=== PATIENT | male | born 1960 | race Caucasian/White ===

== ENCOUNTER 2019-10-09 10:00 | Inpatient (IN) | payer OTHER ==
[~2019-10-09] VITALS: Ht 188 cm; Wt 133.4 kg
[2019-10-09 10:45] VITALS: BP 115/78
[2019-10-09] MEDS ORDERED: PLEASE ENTER ALLERGIES MC SCH (11:00)
[2019-10-09] MEDS ORDERED: PLEASE ENTER HEIGHT AND WEIGHT MC SCH (11:00)
[2019-10-09] MEDS ORDERED: GLIM4TAB4 PO (11:01)
[2019-10-09] MEDS ORDERED: METF-649 PO (11:01)
[2019-10-09] MEDS ORDERED: VIT1CAPS42 PO (11:01)
[2019-10-09] MEDS ORDERED: APIX5TAB PO (11:01)
[2019-10-09] MEDS ORDERED: DILT240C9 PO (11:01)
[2019-10-09] MEDS ORDERED: METO-290 PO (11:01)
[2019-10-09] MEDS ORDERED: ENAL10TA PO (11:01)
[2019-10-09] MEDS ORDERED: INSU200I4 SQ (11:01)
[2019-10-09] MEDS ORDERED: LIPA1CAP18 PO (11:01)
[2019-10-09] MEDS ORDERED: EMPA25TA PO (11:01)
[2019-10-09] MEDS ORDERED: INSU100I18 SQ (11:16)
[2019-10-09 11:37] LABS: BASOPHILS % (AUTO) 1 % (0-1); EOSINOPHILS # (AUTO) 0.36 x10^3/uL (0-0.4); EOSINOPHILS % (AUTO) 4 % (1-7); LYMPHOCYTES # (AUTO) 2.03 x10^3/uL (1-3.4); LYMPHOCYTES % (AUTO) 22 % (22-44); MD NO; MEAN CORPUSCULAR HEMOGLOBIN 30.6 pg (27.5-34.5); MEAN CORPUSCULAR HGB CONC 32.3 g/dL (33.2-36.2); MEAN CORPUSCULAR VOLUME 94.9 fL (81-97); MEAN PLATELET VOLUME 8.8 fL (7.4-10.4); MONOCYTES # (AUTO) 1.04 x10^3/uL (0.2-0.8); MONOCYTES % (AUTO) 11 % (2-9); NEUTROPHILS # (AUTO) 5.68 x10^3/uL (1.8-6.8); NEUTROPHILS % (AUTO) 62 % (42-75); PLATELET COUNT 290 x10^3/uL (130-400); RED BLOOD COUNT 5.57 x10^6/uL (4.38-5.82); RED CELL DISTRIBUTION WIDTH 13.9 % (9.4-14.8)
[2019-10-09 11:48] LABS: ANION GAP 5 mmol/L (5-15); CALCIUM 8.4 mg/dL (8.5-10.1); CHLORIDE 116 mmol/L (98-107)
[2019-10-09 11:53] LABS: ALANINE AMINOTRANSFERASE 51 U/L (12-78); ALBUMIN 3.7 g/dL (3.4-5.0); ALKALINE PHOSPHATASE 70 U/L (45-117); BILIRUBIN,TOTAL 1.1 mg/dL (0.2-1.0); CHOL/HDL RATIO 2.9; CHOLESTEROL, TOTAL 125 mg/dL (140-239); CREATININE 0.75 mg/dL (0.7-1.3); HDL CHOL % 34 % (26-37); HDL CHOLESTEROL (DIRECT) 43 mg/dL (40-60); LDL CHOLESTEROL,CALCULATED 62 mg/dL (54-169); LDL/HDL RATIO 1.4 (0.5-3.0); TOTAL PROTEIN 6.3 g/dL (6.4-8.2); TRIGLYCERIDES 102 mg/dL (50-200); TROPONIN I < 0.015 ng/mL (0.000-0.045); VLDL CHOLESTEROL 20 mg/dL (0-25)
[2019-10-09 11:59] LABS: FREE T4 (FREE THYROXINE) 1.14 ng/dL (0.76-1.46)
[2019-10-09] MEDS: SOTALOL 120MG TABLET PO SCH (12:10)
[2019-10-09 15:10] VITALS: BP 112/72
[2019-10-09 16:16] LABS: TROPONIN I < 0.015 ng/mL (0.000-0.045)
[2019-10-09] MEDS: NOVOLOG SQ SCH ×2 (17:14→20:08)
[2019-10-09] MEDS: metFORMIN 500 MG TABLET PO SCH (17:17)
[2019-10-09 18:56] VITALS: BP 111/75
[2019-10-09] MEDS: INSULIN DEGLUDEC SQ SCH (21:00)
[2019-10-09] MEDS ORDERED: DILTIAZEM CD 180 MG CAP.ER.24H PO SCH (21:00)
[2019-10-09] MEDS: SODIUM CHLORIDE FLUSH 3ML SYRINGE IVF SCH (21:00)
[2019-10-09] MEDS: GLIMEPIRIDE 4 MG TABLET PO SCH (21:28)
[2019-10-09] MEDS: APIXABAN 5 MG TABLET PO SCH (21:28)
[2019-10-09 22:50] LABS: TROPONIN I < 0.015 ng/mL (0.000-0.045)
[2019-10-09 23:57] VITALS: BP 100/67
[2019-10-10] VITALS: BP 100/67
[2019-10-10] MEDS: SOTALOL 120MG TABLET PO SCH ×3 (00:21→20:16)
[2019-10-10] MEDS: METOPROLOL SUCCINATE 100 MG TAB.ER.24H PO SCH ×2 (05:54→10:12)
[2019-10-10 06:56] VITALS: BP 125/89
[2019-10-10 08:14] VITALS: BP 119/78
[2019-10-10] MEDS: NOVOLOG SQ SCH ×4 (08:30→20:04)
[2019-10-10] MEDS ORDERED: DILTIAZEM CD 180 MG CAP.ER.24H PO SCH (09:00)
[2019-10-10] MEDS: APIXABAN 5 MG TABLET PO SCH ×2 (09:56→20:15)
[2019-10-10] MEDS: LINAGLIPTIN 5 MG TAB PO SCH (09:56)
[2019-10-10] MEDS: GLIMEPIRIDE 4 MG TABLET PO SCH ×2 (09:57→20:15)
[2019-10-10] MEDS: SODIUM CHLORIDE FLUSH 3ML SYRINGE IVF SCH ×2 (09:57→21:00)
[2019-10-10] MEDS: metFORMIN 500 MG TABLET PO SCH ×2 (09:57→17:45)
[2019-10-10] MEDS: ENALAPRIL 10 MG TABLET PO SCH (10:12)
[2019-10-10 14:21] VITALS: BP 103/64
[2019-10-10 20:12] VITALS: BP 114/85
[2019-10-10] MEDS: INSULIN DEGLUDEC SQ SCH (20:18)
[2019-10-11 01:24] VITALS: BP 116/71
[2019-10-11] MEDS: METOPROLOL SUCCINATE 100 MG TAB.ER.24H PO SCH (06:23)
[2019-10-11] MEDS: NOVOLOG SQ SCH ×4 (08:08→20:37)
[2019-10-11] MEDS ORDERED: ENALAPRIL 5MG TABLET ONE (08:35)
[2019-10-11 08:58] VITALS: BP 101/66
[2019-10-11] MEDS: APIXABAN 5 MG TABLET PO SCH ×2 (09:06→20:35)
[2019-10-11] MEDS: ENALAPRIL 10 MG TABLET PO SCH (09:06)
[2019-10-11] MEDS: SOTALOL 120MG TABLET PO SCH ×2 (09:06→20:35)
[2019-10-11] MEDS: GLIMEPIRIDE 4 MG TABLET PO SCH ×2 (09:06→20:35)
[2019-10-11] MEDS: LINAGLIPTIN 5 MG TAB PO SCH (09:06)
[2019-10-11] MEDS: metFORMIN 500 MG TABLET PO SCH ×2 (09:06→17:40)
[2019-10-11] MEDS: SODIUM CHLORIDE FLUSH 3ML SYRINGE IVF SCH ×2 (09:06→20:39)
[2019-10-11 13:44] VITALS: BP 96/59
[2019-10-11 15:00] VITALS: BP 102/78
[2019-10-11 19:41] VITALS: BP 109/66
[2019-10-11] MEDS: INSULIN DEGLUDEC SQ SCH (21:00)
[2019-10-12 01:17] VITALS: BP 128/86
[2019-10-12] MEDS: METOPROLOL SUCCINATE 100 MG TAB.ER.24H PO SCH (06:13)
[2019-10-12 07:19] VITALS: BP 115/73
[2019-10-12] MEDS: NOVOLOG SQ SCH (08:52)
[2019-10-12] MEDS: SODIUM CHLORIDE FLUSH 3ML SYRINGE IVF SCH (08:53)
[2019-10-12] MEDS: GLIMEPIRIDE 4 MG TABLET PO SCH (08:53)
[2019-10-12] MEDS: SOTALOL 120MG TABLET PO SCH (08:53)
[2019-10-12] MEDS: metFORMIN 500 MG TABLET PO SCH (08:53)
[2019-10-12] MEDS: ENALAPRIL 10 MG TABLET PO SCH (08:54)
[2019-10-12] MEDS: LINAGLIPTIN 5 MG TAB PO SCH (08:54)
[2019-10-12] MEDS: APIXABAN 5 MG TABLET PO SCH (08:54)
[2019-10-12] MEDS ORDERED: SOTA120T14 PO (10:57)
== END 2019-10-12 11:47 | disposition home or self-care (01) | DRG 309 ==
LOC: 5SO 10:19 → DCLOUNGE 10-12 11:47
PROVIDERS: ADMIT Internal Medicine Cardiovascular Disease; ATTEND Internal Medicine Cardiovascular Disease
DX: I48.0 Paroxysmal atrial fibrillation (principal); D68.59 Other primary thrombophilia; E11.9 Type 2 diabetes mellitus without complications; E78.5 Hyperlipidemia, unspecified; I10 Essential (primary) hypertension; Z87.891 Personal history of nicotine dependence
CPT/HCPCS: 36415; 71046; 80053; 80061; 82962; 84439; 84443; 84484; 85025; 93005; G0378

== ENCOUNTER 2020-05-16 10:43 | Outpatient (CLI) | payer OTHER ==
[~2020-05-16 10:43] MED LIST: APIX5TAB PO; DILT240C47 PO; EMPA25TA PO; ENAL10TA PO; GLIM4TAB8 PO; INSU100I18 SQ; INSU200I4 SQ; LIPA1CAP18 PO; METF-649 PO; METO-290 PO; SOTA120T14 PO; VIT1CAPS42 PO
== END 2020-05-16 23:59 | disposition home or self-care (01) ==
LOC: CVU 10:43
PROVIDERS: ATTEND Internal Medicine Cardiovascular Disease
DX: I48.0 Paroxysmal atrial fibrillation (principal)
CPT/HCPCS: C8929; Q9957

== ENCOUNTER → 2020-06-03 | Outpatient (CLI) | payer OTHER | END | disposition home or self-care (01) | LOC: RAD 07:09 | PROVIDERS: ATTEND Internal Medicine Gastroenterology | DX: K57.90 Diverticulosis of intestine, part unspecified, without perforation or abscess without bleeding (principal); R10.9 Unspecified abdominal pain | CPT/HCPCS: 74270 ==

== ENCOUNTER 2020-06-28 12:34 | Outpatient (CLI) | payer OTHER ==
[~2020-06-28 12:34] MED LIST changes: -ENAL10TA PO; +ENAL10TA9 PO
[2020-06-28] MEDS ORDERED: OMNIPAQUE 350 MG/ML, 150 ML BOTTLE ONE (15:24)
== END 2020-06-28 23:59 | disposition home or self-care (01) ==
LOC: CFH 12:34
PROVIDERS: ATTEND Internal Medicine Cardiovascular Disease
DX: I25.10 Atherosclerotic heart disease of native coronary artery without angina pectoris (principal); M47.814 Spondylosis without myelopathy or radiculopathy, thoracic region; I48.0 Paroxysmal atrial fibrillation; I10 Essential (primary) hypertension; E11.9 Type 2 diabetes mellitus without complications; E78.2 Mixed hyperlipidemia; Z79.01 Long term (current) use of anticoagulants
CPT/HCPCS: 71046; 75572; 82565; Q9967

== ENCOUNTER 2020-07-04 06:05 | Observation (INO) | payer OTHER ==
[~2020-07-04] VITALS: Ht 188 cm; Wt 136.4 kg
[~2020-07-04 06:05] MED LIST changes: +ENAL10TA PO; -ENAL10TA9 PO
[2020-07-04] MEDS ORDERED: SODIUM CHLORIDE 0.9% 1,000 ML IV SCH (06:28)
[2020-07-04] MEDS ORDERED: SODIUM CHLORIDE 0.9% 1,000 ML IV ONE (06:30)
[2020-07-04 06:45] VITALS: BP 138/89
[2020-07-04] MEDS ORDERED: INSU100I18 SC (06:57)
[2020-07-04] MEDS ORDERED: INSU100C5 SQ-INSULIN (06:57)
[2020-07-04] MEDS ORDERED: SOTA160T PO (06:57)
[2020-07-04 07:07] LABS: BASOPHILS # (AUTO) 0.05 x10^3/uL (0-0.1); BASOPHILS % (AUTO) 1 % (0-1); EOSINOPHILS # (AUTO) 0.55 x10^3/uL (0-0.4); EOSINOPHILS % (AUTO) 5 % (1-7); LYMPHOCYTES # (AUTO) 1.88 x10^3/uL (1-3.4); LYMPHOCYTES % (AUTO) 18 % (22-44); MD NO; MEAN CORPUSCULAR HEMOGLOBIN 29.9 pg (27.5-34.5); MEAN CORPUSCULAR HGB CONC 32.6 g/dL (33.2-36.2); MEAN CORPUSCULAR VOLUME 91.8 fL (81-97); MONOCYTES # (AUTO) 0.94 x10^3/uL (0.2-0.8); MONOCYTES % (AUTO) 9 % (2-9); NEUTROPHILS % (AUTO) 67 % (42-75); PLATELET COUNT 279 x10^3/uL (130-400); RED CELL DISTRIBUTION WIDTH 14.1 % (9.4-14.8)
[2020-07-04] MEDS ORDERED: LIDOCAINE 2%, 20ML ONE (07:33)
[2020-07-04] MEDS ORDERED: MIDAZOLAM 1 MG/ML, 2ML ONE (07:48)
[2020-07-04] MEDS ORDERED: FENTANYL PF 250 MCG/5ML ONE (07:48)
[2020-07-04] MEDS ORDERED: LIDOCAINE-MPF 2% ,5ML ONE (07:50)
[2020-07-04] MEDS ORDERED: SUGAMMADEX 200 MG/2 ML IVPush ONE ×2 (08:05→12:45)
[2020-07-04] MEDS ORDERED: HEPARIN 1,000 UNITS/ML, 10ML ONE ×4 (08:07→10:49)
[2020-07-04] MEDS ORDERED: ROCURONIUM 10MG/ML,5ML ONE ×2 (08:12→11:15)
[2020-07-04] MEDS ORDERED: PROPOFOL 10 MG/ML, 20ML ONE ×3 (08:12→11:38)
[2020-07-04] MEDS ORDERED: DEXAMETHASONE 4 MG/ML, 1ML ONE (08:12)
[2020-07-04] MEDS ORDERED: SUCCINYLCHOLINE 20 MG/ML, 10ML ONE (08:12)
[2020-07-04] MEDS ORDERED: ONDANSETRON 2MG/ML, 2ML ONE ×2 (08:12→13:52)
[2020-07-04] MEDS ORDERED: hydrALAzine 20 MG/ML, 1ML IV PRN (08:30)
[2020-07-04] MEDS ORDERED: ACETAMINOPHEN 325 MG TABLET PO PRN (08:30)
[2020-07-04] MEDS ORDERED: HYDROmorphone 1 MG/ML, 1ML INJ IVPush PRN (08:30)
[2020-07-04] MEDS ORDERED: MEPERIDINE/PF 25MG/0.5ML IVPush PRN (08:30)
[2020-07-04] MEDS ORDERED: LABETALOL 5MG/ML, 20ML IV PRN (08:30)
[2020-07-04] MEDS ORDERED: OXYcodone 5 MG/5 ML ORAL.SOL UDC PO PRN (08:30)
[2020-07-04] MEDS ORDERED: ONDANSETRON 2MG/ML, 2ML IVPush PRN (08:30)
[2020-07-04] MEDS ORDERED: EPHEDRINE 50 MG/ML, 1ML IVPush PRN (08:30)
[2020-07-04] MEDS ORDERED: PHENYLEPHRINE 10 MG/ML ONE ×4 (08:32→08:55)
[2020-07-04] MEDS ORDERED: PROMETHAZINE 25 MG/ML, 1ML ONE (13:03)
[2020-07-04] MEDS: PROMETHAZINE 25 MG/ML, 1ML IVPush PRN ×2 (13:05→13:20)
[2020-07-04] MEDS: FENTANYL PF 100 MCG/2ML IV PRN ×4 (13:50→15:25)
[2020-07-04] MEDS ORDERED: APIXABAN 5 MG TABLET ONE (13:50)
[2020-07-04] MEDS ORDERED: FENTANYL PF 100 MCG/2ML ONE ×2 (13:51→15:22)
[2020-07-04] MEDS ORDERED: APIXABAN 5 MG TABLET PO ONE (14:30)
[2020-07-04] MEDS ORDERED: OXYcodone 5 MG/5 ML ORAL.SOL UDC ONE (15:22)
[2020-07-04] MEDS ORDERED: TEMPLATE NON-FORMULARY MED. (Insulin Aspart (Novolog) 0 UNITS) SQ SCH (16:00)
[2020-07-04] MEDS: PANCRELIPASE 5000 CAPSULE.DR PO SCH (16:00)
[2020-07-04 16:48] VITALS: BP 156/92
[2020-07-04] MEDS ORDERED: INSULIN SLIDING SCALE MC SCH (17:00)
[2020-07-04 18:50] VITALS: BP 146/78
[2020-07-04] MEDS: TEMPLATE NON-FORMULARY MED. (Vit C/E/Zn/Coppr/Lutein/Zeaxan** (Preservision Areds 2 Softge HOMEMEDPO SCH (20:50)
[2020-07-04 20:55] VITALS: BP 136/75
[2020-07-04] MEDS: GLIMEPIRIDE 4 MG TABLET PO SCH (20:55)
[2020-07-04] MEDS: COLCHICINE 0.6 MG CAPSULE PO SCH (20:56)
[2020-07-04] MEDS: APIXABAN 5 MG TABLET PO SCH (20:56)
[2020-07-04] MEDS: SOTALOL 80MG TABLET PO SCH (20:56)
[2020-07-04] MEDS: metFORMIN 500 MG TABLET PO SCH (20:56)
[2020-07-04] MEDS ORDERED: APIXABAN 5 MG TABLET PO SCH (21:00)
[2020-07-04] MEDS ORDERED: INSULIN GLARGINE 100 UNITS/ML, PEN SQ-INSULIN SCH (21:00)
[2020-07-04] MEDS: INSULIN LISPRO 100 UNITS/ML, PEN SQ-INSULIN SCH (21:48)
[2020-07-05 01:24] VITALS: BP 99/60
[2020-07-05] MEDS: ACETAMINOPHEN 325 MG TABLET PO PRN ×2 (05:17→10:16)
[2020-07-05 06:21] LABS: CREATININE 1.07 mg/dL (0.7-1.3)
[2020-07-05 08:02] VITALS: BP 109/66
[2020-07-05] MEDS: TEMPLATE NON-FORMULARY MED. (Vit C/E/Zn/Coppr/Lutein/Zeaxan** (Preservision Areds 2 Softge HOMEMEDPO SCH (08:20)
[2020-07-05] MEDS: SOTALOL 80MG TABLET PO SCH (08:28)
[2020-07-05] MEDS: APIXABAN 5 MG TABLET PO SCH (08:28)
[2020-07-05] MEDS: GLIMEPIRIDE 4 MG TABLET PO SCH (08:28)
[2020-07-05] MEDS: COLCHICINE 0.6 MG CAPSULE PO SCH (08:28)
[2020-07-05] MEDS: INSULIN LISPRO 100 UNITS/ML, PEN SQ-INSULIN SCH ×2 (08:28→10:17)
[2020-07-05] MEDS: metFORMIN 500 MG TABLET PO SCH (08:28)
[2020-07-05] MEDS ORDERED: ACET325T26 PO (08:36)
[2020-07-05] MEDS: PANCRELIPASE 5000 CAPSULE.DR PO SCH (08:36)
[2020-07-05] MEDS ORDERED: COLC0.6C3 PO (08:36)
[2020-07-05] MEDS ORDERED: METOPROLOL SUCCINATE 100 MG TAB.ER.24H PO SCH (09:00)
[2020-07-05] MEDS ORDERED: ENALAPRIL 10 MG TABLET PO SCH (09:00)
== END 2020-07-05 11:37 | disposition home or self-care (01) ==
LOC: CACL 06:05 → ORIP 12:52 → 5SO 16:36 → DCLOUNGE 07-05 11:31
PROVIDERS: ADMIT Internal Medicine Cardiovascular Disease; ATTEND Internal Medicine Cardiovascular Disease
DX: Z03.818 Encounter for observation for suspected exposure to other biological agents ruled out (principal); I48.91 Unspecified atrial fibrillation; I48.4 Atypical atrial flutter; I10 Essential (primary) hypertension; E11.9 Type 2 diabetes mellitus without complications; Z79.899 Other long term (current) drug therapy; Z79.01 Long term (current) use of anticoagulants
CPT/HCPCS: 36415; 82565; 82962; 85025; 85347; 87635; 93308; 93312; 93321; 93325; 93613; 93655; 93656; 93657; 93662; C1730; C1732; C1759; C1766; C1893; C1894; G0378; J0330; J1100; J1644; J1815; J2250; J2370; J2405; J2550; J2704; J3010; J3490

== ENCOUNTER 2021-01-03 09:09 | Day surgery (SDC) | payer OTHER ==
[~2021-01-03] VITALS: Ht 185.4 cm; Wt 133.5 kg
[~2021-01-03 09:09] MED LIST changes: +ACET325T26 PO; +COLC0.6C3 PO; +DILT-88 PO; -DILT240C47 PO; -ENAL10TA PO; +ENAL10TA9 PO; +INSU100C5 SQ-INSULIN; +INSU100I18 SC; -METF-649 PO; +METF-734 PO; +SOTA160T PO
[2021-01-03] MEDS ORDERED: METO-93 PO (09:50)
[2021-01-03 09:52] VITALS: BP 142/91
[2021-01-03 10:05] LABS: BASOPHILS % (AUTO) 1 % (0-1); EOSINOPHILS % (AUTO) 6 % (1-7); LYMPHOCYTES % (AUTO) 23 % (22-44); MEAN CORPUSCULAR HGB CONC 33.7 g/dL (33.2-36.2); MEAN PLATELET VOLUME 8.5 fL (7.4-10.4); MONOCYTES % (AUTO) 10 % (2-9); NEUTROPHILS % (AUTO) 60 % (42-75); PLATELET COUNT 327 x10^3/uL (130-400); RED BLOOD COUNT 5.31 x10^6/uL (4.38-5.82); RED CELL DISTRIBUTION WIDTH 13.8 % (9.4-14.8)
[2021-01-03 10:06] LABS: MD NO
[2021-01-03 10:14] LABS: ANION GAP 8 mmol/L (5-15); CALCIUM 8.9 mg/dL (8.5-10.1); CHLORIDE 113 mmol/L (98-107); CREATININE 0.85 mg/dL (0.7-1.3)
[2021-01-03] MEDS ORDERED: MIDAZOLAM 1 MG/ML, 5ML ONE (11:06)
[2021-01-03] MEDS ORDERED: TICAGRELOR 90 MG TABLET ONE (11:06)
[2021-01-03] MEDS ORDERED: VERAPAMIL 2.5 MG/ML, 2ML ONE (11:06)
[2021-01-03] MEDS ORDERED: HEPARIN 1,000 UNITS/ML, 10ML ONE (11:06)
[2021-01-03] MEDS ORDERED: FENTANYL PF 100 MCG/2ML ONE (11:06)
[2021-01-03] MEDS ORDERED: BIVALIRUDIN 250 MG ONE (11:06)
[2021-01-03] MEDS ORDERED: LIDOCAINE-MPF 1%, 5ML ONE (11:06)
[2021-01-03] MEDS ORDERED: ONDANSETRON 2MG/ML, 2ML ONE (11:24)
[2021-01-03] MEDS ORDERED: SODIUM CHLORIDE 0.9% 1,000 ML IV SCH (14:00)
== END 2021-01-03 13:53 | disposition home or self-care (01) ==
LOC: CACL 09:09
PROVIDERS: ATTEND Internal Medicine Cardiovascular Disease
DX: I48.0 Paroxysmal atrial fibrillation (principal); I10 Essential (primary) hypertension; E11.9 Type 2 diabetes mellitus without complications; Z79.899 Other long term (current) drug therapy; Z79.84 Long term (current) use of oral hypoglycemic drugs; Z79.01 Long term (current) use of anticoagulants; Z72.89 Other problems related to lifestyle; Z98.890 Other specified postprocedural states
CPT/HCPCS: 36415; 80048; 85025; 93458; 93880; 99156; C1769; C1894; J1644; J2250; J2405; J3010; Q9967; J0583

== ENCOUNTER 2021-01-21 04:35 | Inpatient (IN) | payer OTHER ==
[2021-01-20 14:39] LABS: ALBUMIN 3.6 g/dL (3.4-5.0); ANION GAP 6 mmol/L (5-15); CALCIUM 8.9 mg/dL (8.5-10.1); CHLORIDE 111 mmol/L (98-107)
[2021-01-20 14:43] LABS: ALANINE AMINOTRANSFERASE 33 U/L (12-78); ALKALINE PHOSPHATASE 97 U/L (45-117); BILIRUBIN,TOTAL 0.6 mg/dL (0.2-1.0); CREATININE 0.87 mg/dL (0.7-1.3); TOTAL PROTEIN 7.1 g/dL (6.4-8.2)
[2021-01-20 14:55] LABS: MICROSCOPIC NOT IND
[2021-01-20 15:05] LABS: INTERNATIONAL NORMALIZED RATIO 1.01 (0.93-1.1); PROTHROMBIN TIME 10.8 Seconds (9.6-11.5)
[2021-01-20 15:13] LABS: BASOPHILS % (AUTO) 1 % (0-1); EOSINOPHILS % (AUTO) 5 % (1-7); LYMPHOCYTES % (AUTO) 24 % (22-44); MEAN CORPUSCULAR HEMOGLOBIN 30.7 pg (27.5-34.5); MEAN CORPUSCULAR HGB CONC 33.3 g/dL (33.2-36.2); MEAN PLATELET VOLUME 9.1 fL (7.4-10.4); MONOCYTES % (AUTO) 12 % (2-9); NEUTROPHILS % (AUTO) 58 % (42-75); PLATELET COUNT 288 x10^3/uL (130-400); RED BLOOD COUNT 5.79 x10^6/uL (4.38-5.82); RED CELL DISTRIBUTION WIDTH 13.4 % (9.4-14.8)
[2021-01-20 15:17] LABS: MD NO
[~2021-01-21] VITALS: Ht 188 cm; Wt 134.6 kg
[~2021-01-21 04:35] MED LIST changes: +METO-93 PO
[2021-01-21] MEDS ORDERED: ACETAMINOPHEN 325 MG TABLET PO PRN (05:00)
[2021-01-21] MEDS ORDERED: METOPROLOL TARTRATE 25 MG TAB PO ONE (05:00)
[2021-01-21] MEDS ORDERED: CHLORHEXIDINE 15 ML UDC MM PRN (05:00)
[2021-01-21] MEDS ORDERED: DO NOT GIVE MC SCH (05:00)
[2021-01-21] MEDS ORDERED: INSULIN LISPRO 100 UNITS/ML, PEN SQ-INSULIN ONE (05:00)
[2021-01-21] MEDS ORDERED: FENTANYL PF 250 MCG/5ML ONE ×4 (07:02→07:03)
[2021-01-21] MEDS ORDERED: MIDAZOLAM 10MG/2 ML ONE (07:02)
[2021-01-21] MEDS ORDERED: ALBUMIN HUMAN 5% 500 ML IV PRN (07:30)
[2021-01-21] MEDS ORDERED: PHENYLEPHRINE 50 MG in SODIUM CHLORIDE 0.9% 245 ML IV PRN ×2 (07:30→13:00)
[2021-01-21] MEDS ORDERED: REGULAR INSULIN 100 UNITS in SODIUM CHLORIDE 0.9% 99 ML IV PRN ×2 (07:30→13:00)
[2021-01-21] MEDS ORDERED: CEFUROXIME 1.5 GM in SODIUM CHLORIDE 0.9% 50 ML IVPB PRN (07:30)
[2021-01-21] MEDS ORDERED: VANCOMYCIN 2,000 MG in SODIUM CHLORIDE 0.9% 500 ML IV PRN (07:30)
[2021-01-21] MEDS ORDERED: MANNITOL PMX 20% 500 ML IVPB PRN (07:30)
[2021-01-21] MEDS ORDERED: EPINEPHRINE 5 MG in SODIUM CHLORIDE 0.9% 245 ML IV PRN (07:30)
[2021-01-21] MEDS ORDERED: POTASSIUM CHLORIDE 80 MEQ, SODIUM BICARBONATE 8.4% 10 MEQ, MAGNESIUM SULFATE 0.5 GM, LI... IV PRN (07:30)
[2021-01-21] MEDS ORDERED: DEXMEDETOMIDINE 200 MCG in SODIUM CHLORIDE 0.9% 48 ML IV PRN ×2 (07:30→13:00)
[2021-01-21] MEDS ORDERED: VASOPRESSIN 20 UNIT/ML, 1ML ONE ×2 (08:16)
[2021-01-21] MEDS ORDERED: PROTAMINE SULFATE 10 MG/ML, 25ML ONE ×3 (09:38)
[2021-01-21] MEDS ORDERED: AMIODARONE 50 MG/ML, 3ML ONE ×2 (10:46)
[2021-01-21] MEDS ORDERED: ROCURONIUM 10MG/ML,5ML ONE (10:47)
[2021-01-21] MEDS ORDERED: PROPOFOL 10 MG/ML, 20ML ONE (10:47)
[2021-01-21] MEDS ORDERED: AMINOCAPROIC ACID 250 MG/ML, 20ML ONE (10:47)
[2021-01-21] MEDS ORDERED: ALBUMIN HUMAN 25% 50 ML ONE (11:57)
[2021-01-21] MEDS ORDERED: LIDOCAINE 2%, 20ML ONE (11:57)
[2021-01-21] MEDS ORDERED: HEPARIN 1,000 UNITS/ML, 30ML ONE (11:57)
[2021-01-21] MEDS ORDERED: methylPREDNISolone SOD SUCC 125 MG/2 ML ONE (11:57)
[2021-01-21 12:18] LABS: GLUCOSE BY BLOOD GAS ANALYZER 160 mg/dL (70-110); HEMOGLOBIN BY BLOOD GAS ANALYZ 14.7 g/dL (14.0-18.0); POTASSIUM BY BLOOD GAS ANALYZR 4.3 mmol/L (3.6-5.5)
[2021-01-21 12:33] LABS: INTERNATIONAL NORMALIZED RATIO 1.28 (0.93-1.1); PROTHROMBIN TIME 13.6 Seconds (9.6-11.5)
[2021-01-21] MEDS ORDERED: SODIUM BICARB 8.4%, 50ML SYRINGE ONE (12:57)
[2021-01-21] MEDS ORDERED: GLUCAGON 1 MG IM PRN (13:00)
[2021-01-21] MEDS ORDERED: BISACODYL 5 MG EC TABLET PO PRN (13:00)
[2021-01-21] MEDS ORDERED: MIDAZOLAM 1 MG/ML, 2ML IV PRN (13:00)
[2021-01-21] MEDS ORDERED: INSULIN REGULAR 100 UNITS/ML, 3ML VIAL SQ-INSULIN PRN (13:00)
[2021-01-21] MEDS ORDERED: SODIUM CHLORIDE 0.9% 1,000 ML IV SCH (13:00)
[2021-01-21] MEDS ORDERED: SODIUM BICARB 8.4%, 50ML SYRINGE IVPush PRN (13:00)
[2021-01-21] MEDS ORDERED: DEXTROSE 4 GM TAB.CHEW PO PRN (13:00)
[2021-01-21] MEDS ORDERED: DEXTROSE 50%, 50ML SYRINGE IVPush PRN (13:00)
[2021-01-21] MEDS ORDERED: VASOPRESSIN 20 UNIT in SODIUM CHLORIDE 0.9% 99 ML IV PRN (13:00)
[2021-01-21] MEDS ORDERED: PHARMACY INSTRUCTION (CSU AMIODARONE) MC SCH (13:00)
[2021-01-21] MEDS: INSULIN LISPRO 100 UNITS/ML, PEN SQ-INSULIN SCH ×3 (13:00→20:12)
[2021-01-21] MEDS ORDERED: NITROGLYCERIN/D5W PMX 250 ML IV PRN (13:00)
[2021-01-21] MEDS ORDERED: EPINEPHRINE 5 MG in SODIUM CHLORIDE 0.9% 245 ML IVPB PRN (13:00)
[2021-01-21] MEDS ORDERED: PROCHLORPERAZINE 5 MG/ML, 2ML IV PRN (13:00)
[2021-01-21] MEDS ORDERED: BISACODYL 10 MG SUPP PR PRN (13:00)
[2021-01-21] MEDS ORDERED: ONDANSETRON 2MG/ML, 2ML IV PRN (13:00)
[2021-01-21] MEDS: KSCALE TO 4.5 IV SCH ×2 (13:00→18:49)
[2021-01-21] MEDS ORDERED: ACETAMINOPHEN 650 MG SUPP PR PRN (13:00)
[2021-01-21] MEDS ORDERED: DOBUTAMINE 250 MG in SODIUM CHLORIDE 0.9% 230 ML IV PRN (13:00)
[2021-01-21] MEDS: SODIUM CHLORIDE FLUSH 10ML SYR IVF SCH ×2 (13:17→20:10)
[2021-01-21] MEDS: MAGNESIUM SULFATE 1 GM in SODIUM CHLORIDE 0.9% 50 ML IVPB SCH (14:08)
[2021-01-21] MEDS: DEXMEDETOMIDINE 1,000 MCG in SODIUM CHLORIDE 0.9% 240 ML IV PRN (15:38)
[2021-01-21] MEDS ORDERED: OMEP-110 PO (16:08)
[2021-01-21] MEDS ORDERED: CETI10CA PO (16:08)
[2021-01-21] MEDS ORDERED: SODIUM BICARB 8.4%, 50ML SYRINGE IVPush STA (16:46)
[2021-01-21] MEDS ORDERED: LACTATED RINGERS 1,000 ML IV PRN (19:00)
[2021-01-21] MEDS: VANCOMYCIN 2,000 MG in SODIUM CHLORIDE 0.9% 250 ML IV SCH (20:09)
[2021-01-21] MEDS: CEFUROXIME 1.5 GM in SODIUM CHLORIDE 0.9% 50 ML IVPB SCH (20:10)
[2021-01-21] MEDS: DOCUSATE 100 MG CAPSULE PO SCH (20:10)
[2021-01-21] MEDS: MUPIROCIN OINT 2%, 22GM NAS SCH (21:57)
[2021-01-22] MEDS: INSULIN LISPRO 100 UNITS/ML, PEN SQ-INSULIN SCH ×6 (01:00→20:13)
[2021-01-22] MEDS: KSCALE TO 4.5 IV SCH ×2 (01:00→05:20)
[2021-01-22 04:27] LABS: BASOPHILS % (AUTO) 0 % (0-1); EOSINOPHILS % (AUTO) 0 % (1-7); LYMPHOCYTES % (AUTO) 8 % (22-44); MEAN CORPUSCULAR HEMOGLOBIN 29.8 pg (27.5-34.5); MEAN PLATELET VOLUME 8.2 fL (7.4-10.4); MONOCYTES % (AUTO) 8 % (2-9); NEUTROPHILS % (AUTO) 83 % (42-75); PLATELET COUNT 156 x10^3/uL (130-400); RED BLOOD COUNT 4.86 x10^6/uL (4.38-5.82); RED CELL DISTRIBUTION WIDTH 14.2 % (9.4-14.8)
[2021-01-22 04:37] LABS: ALBUMIN 2.5 g/dL (3.4-5.0); ANION GAP 10 mmol/L (5-15); CALCIUM 6.7 mg/dL (8.5-10.1); CHLORIDE 117 mmol/L (98-107); CREATININE 1.03 mg/dL (0.7-1.3)
[2021-01-22 04:50] LABS: MD SCAN
[2021-01-22] MEDS ORDERED: POTASSIUM CHLORIDE PMX 100 ML IV ONE (05:30)
[2021-01-22] MEDS: DEXMEDETOMIDINE 1,000 MCG in SODIUM CHLORIDE 0.9% 240 ML IV PRN (05:43)
[2021-01-22] MEDS: OXYcodone IR 5MG TABLET PO PRN ×4 (07:33→20:44)
[2021-01-22] MEDS: CEFUROXIME 1.5 GM in SODIUM CHLORIDE 0.9% 50 ML IVPB SCH (08:26)
[2021-01-22] MEDS ORDERED: ASPIRIN 81 MG TABLET EC PO SCH (09:00)
[2021-01-22] MEDS: DOCUSATE 100 MG CAPSULE PO SCH ×2 (09:00→20:07)
[2021-01-22] MEDS: CHLORHEXIDINE 15 ML UDC MM SCH ×2 (09:00→20:07)
[2021-01-22] MEDS ORDERED: ASPIRIN 81 MG TABLET CHEW ONE (09:06)
[2021-01-22] MEDS: MUPIROCIN OINT 2%, 22GM NAS SCH ×2 (09:11→20:07)
[2021-01-22] MEDS: VANCOMYCIN 2,000 MG in SODIUM CHLORIDE 0.9% 250 ML IV SCH (09:11)
[2021-01-22] MEDS: ASPIRIN 81 MG TABLET CHEW PO SCH (09:11)
[2021-01-22] MEDS: SODIUM CHLORIDE FLUSH 10ML SYR IVF SCH ×2 (09:11→20:06)
[2021-01-22] MEDS: MAGNESIUM SULFATE 1 GM in SODIUM CHLORIDE 0.9% 50 ML IVPB SCH (13:04)
[2021-01-22] MEDS: HYDROcodone/APAP 10/325 MG TABLET PO PRN ×2 (14:12→18:31)
[2021-01-22 15:47] LABS: ANION GAP 11 mmol/L (5-15); CALCIUM 7.3 mg/dL (8.5-10.1); CHLORIDE 115 mmol/L (98-107); CREATININE 1.05 mg/dL (0.7-1.3)
[2021-01-23] MEDS: HYDROcodone/APAP 5/325 TABLET PO PRN ×4 (00:16→20:44)
[2021-01-23] MEDS: INSULIN LISPRO 100 UNITS/ML, PEN SQ-INSULIN SCH ×5 (00:25→22:07)
[2021-01-23] MEDS: HYDROcodone/APAP 10/325 MG TABLET PO PRN ×2 (04:07→08:07)
[2021-01-23 04:36] LABS: BASOPHILS % (AUTO) 0 % (0-1); EOSINOPHILS % (AUTO) 0 % (1-7); LYMPHOCYTES % (AUTO) 11 % (22-44); MEAN CORPUSCULAR HEMOGLOBIN 30.2 pg (27.5-34.5); MEAN CORPUSCULAR HGB CONC 32.9 g/dL (33.2-36.2); MONOCYTES % (AUTO) 15 % (2-9); NEUTROPHILS % (AUTO) 74 % (42-75); PLATELET COUNT 138 x10^3/uL (130-400); RED BLOOD COUNT 4.48 x10^6/uL (4.38-5.82); RED CELL DISTRIBUTION WIDTH 13.9 % (9.4-14.8)
[2021-01-23 04:46] LABS: ANION GAP 5 mmol/L (5-15); CALCIUM 7.8 mg/dL (8.5-10.1); CHLORIDE 113 mmol/L (98-107); CREATININE 0.86 mg/dL (0.7-1.3)
[2021-01-23 05:15] LABS: MD SCAN
[2021-01-23] MEDS: SODIUM CHLORIDE FLUSH 10ML SYR IVF SCH ×2 (08:03→20:46)
[2021-01-23] MEDS: DOCUSATE 100 MG CAPSULE PO SCH ×2 (08:05→20:44)
[2021-01-23] MEDS: MUPIROCIN OINT 2%, 22GM NAS SCH ×2 (08:05→20:46)
[2021-01-23] MEDS: CHLORHEXIDINE 15 ML UDC MM SCH ×2 (08:05→20:46)
[2021-01-23] MEDS: ASPIRIN 81 MG TABLET CHEW PO SCH (08:05)
[2021-01-23] MEDS ORDERED: POTASSIUM CHLORIDE 10 MEQ TABLET.ER PO SCH (09:00)
[2021-01-23] MEDS ORDERED: FUROSEMIDE 40 MG/4 ML IV SCH (09:30)
[2021-01-23] MEDS ORDERED: FUROSEMIDE 40 MG/4 ML ONE (09:59)
[2021-01-23] MEDS ORDERED: POTASSIUM CHLORIDE 20 MEQ TAB.ER.PRT ONE (10:00)
[2021-01-23] MEDS ORDERED: OMEPRAZOLE 20 MG CAPSULE.DR ONE (10:00)
[2021-01-23] MEDS: POTASSIUM CHLORIDE 20 MEQ TAB.ER.PRT PO SCH (10:06)
[2021-01-23] MEDS: OMEPRAZOLE 20 MG CAPSULE.DR PO SCH (10:06)
[2021-01-23] MEDS: GLIMEPIRIDE 4 MG TABLET PO SCH ×2 (10:14→20:43)
[2021-01-23] MEDS: MAGNESIUM SULFATE 1 GM in SODIUM CHLORIDE 0.9% 50 ML IVPB SCH (10:14)
[2021-01-23] MEDS: METOPROLOL TARTRATE 25 MG TAB PO SCH (16:34)
[2021-01-23 19:42] VITALS: BP 150/79
[2021-01-23] MEDS: ACETAMINOPHEN 325 MG TABLET PO PRN (22:20)
[2021-01-24 00:02] VITALS: BP 107/67
[2021-01-24 05:04] VITALS: BP 150/73
[2021-01-24] MEDS: METOPROLOL TARTRATE 25 MG TAB PO SCH (05:05)
[2021-01-24] MEDS: HYDROcodone/APAP 10/325 MG TABLET PO PRN (05:06)
[2021-01-24 05:19] LABS: BASOPHILS % (AUTO) 1 % (0-1); EOSINOPHILS % (AUTO) 0 % (1-7); LYMPHOCYTES % (AUTO) 13 % (22-44); MEAN CORPUSCULAR HEMOGLOBIN 30.2 pg (27.5-34.5); MEAN CORPUSCULAR HGB CONC 32.9 g/dL (33.2-36.2); MEAN PLATELET VOLUME 9.3 fL (7.4-10.4); MONOCYTES % (AUTO) 14 % (2-9); NEUTROPHILS % (AUTO) 72 % (42-75); PLATELET COUNT 140 x10^3/uL (130-400); RED BLOOD COUNT 4.23 x10^6/uL (4.38-5.82); RED CELL DISTRIBUTION WIDTH 13.7 % (9.4-14.8)
[2021-01-24 05:20] LABS: ANION GAP 8 mmol/L (5-15); CALCIUM 8.6 mg/dL (8.5-10.1); CHLORIDE 110 mmol/L (98-107)
[2021-01-24 05:22] LABS: CREATININE 0.69 mg/dL (0.7-1.3)
[2021-01-24 05:55] LABS: MD SCAN
[2021-01-24 07:50] VITALS: BP 145/88
[2021-01-24] MEDS ORDERED: POTASSIUM CHLORIDE 20 MEQ TAB.ER.PRT PO SCH (09:00)
[2021-01-24] MEDS ORDERED: CLOPIDOGREL 75 MG TABLET PO SCH (09:00)
[2021-01-24] MEDS: FUROSEMIDE 40 MG/4 ML IV SCH ×2 (09:41→21:00)
[2021-01-24] MEDS: DOCUSATE 100 MG CAPSULE PO SCH ×2 (09:42→20:57)
[2021-01-24] MEDS: APIXABAN 5 MG TABLET PO SCH ×2 (09:42→20:57)
[2021-01-24] MEDS: ASPIRIN 81 MG TABLET CHEW PO SCH (09:42)
[2021-01-24] MEDS: MUPIROCIN OINT 2%, 22GM NAS SCH ×2 (09:42→20:57)
[2021-01-24] MEDS: POTASSIUM CHLORIDE 20 MEQ TAB.ER.PRT PO SCH (09:42)
[2021-01-24] MEDS: OMEPRAZOLE 20 MG CAPSULE.DR PO SCH (09:42)
[2021-01-24] MEDS: GLIMEPIRIDE 4 MG TABLET PO SCH ×2 (09:42→20:57)
[2021-01-24] MEDS: INSULIN LISPRO 100 UNITS/ML, PEN SQ-INSULIN SCH ×4 (09:44→21:24)
[2021-01-24] MEDS: SODIUM CHLORIDE FLUSH 10ML SYR IVF SCH ×2 (09:45→20:57)
[2021-01-24] MEDS: ENALAPRIL 10 MG TABLET PO SCH (11:18)
[2021-01-24] MEDS: ACETAMINOPHEN 325 MG TABLET PO PRN ×2 (12:52→21:23)
[2021-01-24 14:15] VITALS: BP 144/73
[2021-01-24 17:06] VITALS: BP 153/71
[2021-01-24] MEDS: metFORMIN 500 MG TABLET PO SCH (17:07)
[2021-01-24] MEDS: METOPROLOL TARTRATE 50 MG TAB PO SCH (17:07)
[2021-01-24 21:40] VITALS: BP 121/74
[2021-01-25] VITALS (7 sets, daily range): BP systolic 105–148; BP diastolic 69–91
[2021-01-25 04:44] LABS: BASOPHILS % (AUTO) 1 % (0-1); EOSINOPHILS % (AUTO) 2 % (1-7); LYMPHOCYTES % (AUTO) 15 % (22-44); MEAN CORPUSCULAR HEMOGLOBIN 30.5 pg (27.5-34.5); MEAN PLATELET VOLUME 9.3 fL (7.4-10.4); MONOCYTES % (AUTO) 13 % (2-9); NEUTROPHILS % (AUTO) 68 % (42-75); PLATELET COUNT 171 x10^3/uL (130-400); RED BLOOD COUNT 4.18 x10^6/uL (4.38-5.82); RED CELL DISTRIBUTION WIDTH 13.4 % (9.4-14.8)
[2021-01-25 04:52] LABS: ANION GAP 6 mmol/L (5-15); CALCIUM 8.7 mg/dL (8.5-10.1); CHLORIDE 109 mmol/L (98-107)
[2021-01-25 04:53] LABS: CREATININE 0.59 mg/dL (0.7-1.3)
[2021-01-25 05:34] LABS: MD SCAN
[2021-01-25] MEDS: METOPROLOL TARTRATE 50 MG TAB PO SCH ×2 (06:25→18:13)
[2021-01-25] MEDS: DOCUSATE 100 MG CAPSULE PO SCH ×2 (08:22→21:31)
[2021-01-25] MEDS: OMEPRAZOLE 20 MG CAPSULE.DR PO SCH (08:22)
[2021-01-25] MEDS: metFORMIN 500 MG TABLET PO SCH ×2 (08:23→16:49)
[2021-01-25] MEDS: ENALAPRIL 10 MG TABLET PO SCH (08:23)
[2021-01-25] MEDS: GLIMEPIRIDE 4 MG TABLET PO SCH ×2 (08:23→21:31)
[2021-01-25] MEDS: APIXABAN 5 MG TABLET PO SCH ×2 (08:23→21:32)
[2021-01-25] MEDS: MUPIROCIN OINT 2%, 22GM NAS SCH ×2 (08:24→21:32)
[2021-01-25] MEDS: INSULIN LISPRO 100 UNITS/ML, PEN SQ-INSULIN SCH ×4 (08:24→21:46)
[2021-01-25] MEDS: ASPIRIN 81 MG TABLET CHEW PO SCH (08:24)
[2021-01-25] MEDS: FUROSEMIDE 40 MG/4 ML IV SCH ×2 (08:25→09:07)
[2021-01-25] MEDS: POTASSIUM CHLORIDE 20 MEQ TAB.ER.PRT PO SCH ×2 (08:25→09:29)
[2021-01-25] MEDS: SODIUM CHLORIDE FLUSH 10ML SYR IVF SCH ×2 (08:34→21:33)
[2021-01-25] MEDS ORDERED: ENALAPRIL 10 MG TABLET PO SCH (09:00)
[2021-01-25] MEDS ORDERED: metFORMIN XR 500 MG TAB.ER.24H PO SCH (09:00)
[2021-01-25] MEDS ORDERED: APIXABAN 5 MG TABLET PO SCH (09:00)
[2021-01-25] MEDS: METOLAZONE 2.5 MG TABLET PO SCH (09:30)
[2021-01-25] MEDS: ACETAMINOPHEN 325 MG TABLET PO PRN ×2 (13:26→18:20)
[2021-01-25] MEDS ORDERED: AMIODARONE 150 MG in DEXTROSE 5% 100 ML IV ONE ×2 (14:30→19:00)
[2021-01-25] MEDS: AMIODARONE 450 MG in DEXTROSE 5% 241 ML IV PRN (14:42)
[2021-01-25] MEDS: FILTER 0.22 MICRON FOR AMIODARONE IV PRN (14:43)
[2021-01-25] MEDS ORDERED: METOLAZONE 2.5 MG TABLET PO SCH (17:00)
[2021-01-26 01:10] VITALS: BP 113/78
[2021-01-26] MEDS: METOPROLOL TARTRATE 50 MG TAB PO SCH ×2 (05:35→17:08)
[2021-01-26 06:03] LABS: ANION GAP 6 mmol/L (5-15); CALCIUM 9.5 mg/dL (8.5-10.1); CHLORIDE 103 mmol/L (98-107); CREATININE 0.62 mg/dL (0.7-1.3)
[2021-01-26 06:06] LABS: BASOPHILS % (AUTO) 1 % (0-1); EOSINOPHILS % (AUTO) 4 % (1-7); LYMPHOCYTES % (AUTO) 18 % (22-44); MEAN CORPUSCULAR HEMOGLOBIN 30.7 pg (27.5-34.5); MEAN CORPUSCULAR HGB CONC 33.7 g/dL (33.2-36.2); MEAN PLATELET VOLUME 9.6 fL (7.4-10.4); MONOCYTES % (AUTO) 15 % (2-9); NEUTROPHILS % (AUTO) 63 % (42-75); PLATELET COUNT 240 x10^3/uL (130-400); RED BLOOD COUNT 4.81 x10^6/uL (4.38-5.82); RED CELL DISTRIBUTION WIDTH 13.6 % (9.4-14.8)
[2021-01-26 06:23] LABS: MD NO
[2021-01-26 06:53] VITALS: BP 112/76
[2021-01-26] MEDS: GLIMEPIRIDE 4 MG TABLET PO SCH ×2 (08:06→20:06)
[2021-01-26] MEDS: ASPIRIN 81 MG TABLET CHEW PO SCH (08:06)
[2021-01-26] MEDS: OMEPRAZOLE 20 MG CAPSULE.DR PO SCH (08:06)
[2021-01-26] MEDS: INSULIN LISPRO 100 UNITS/ML, PEN SQ-INSULIN SCH ×4 (08:06→20:08)
[2021-01-26] MEDS: METOLAZONE 2.5 MG TABLET PO SCH (08:07)
[2021-01-26] MEDS: ENALAPRIL 10 MG TABLET PO SCH (08:07)
[2021-01-26] MEDS: metFORMIN 500 MG TABLET PO SCH ×2 (08:07→17:08)
[2021-01-26] MEDS: APIXABAN 5 MG TABLET PO SCH ×2 (08:07→20:06)
[2021-01-26] MEDS: POTASSIUM CHLORIDE 20 MEQ TAB.ER.PRT PO SCH (08:07)
[2021-01-26] MEDS: DOCUSATE 100 MG CAPSULE PO SCH ×2 (08:08→20:06)
[2021-01-26] MEDS: FUROSEMIDE 40 MG/4 ML IV SCH (08:08)
[2021-01-26] MEDS: MUPIROCIN OINT 2%, 22GM NAS SCH (08:08)
[2021-01-26] MEDS ORDERED: AMIODARONE 150 MG in DEXTROSE 5% 100 ML IV ONE (08:30)
[2021-01-26] MEDS: SODIUM CHLORIDE FLUSH 10ML SYR IVF SCH ×2 (09:00→20:16)
[2021-01-26] MEDS: AMIODARONE 200 MG TABLET PO SCH (09:24)
[2021-01-26] MEDS: FILTER 0.22 MICRON FOR AMIODARONE IV PRN (09:25)
[2021-01-26 12:38] VITALS: BP 114/75
[2021-01-26 17:09] VITALS: BP 106/71
[2021-01-26 19:42] VITALS: BP 108/68
[2021-01-27] VITALS (10 sets, daily range): BP systolic 85–113; BP diastolic 55–77
[2021-01-27 05:07] LABS: ANION GAP 9 mmol/L (5-15); CALCIUM 9.9 mg/dL (8.5-10.1); CHLORIDE 100 mmol/L (98-107); CREATININE 0.78 mg/dL (0.7-1.3)
[2021-01-27] MEDS: METOPROLOL TARTRATE 50 MG TAB PO SCH ×2 (05:53→19:46)
[2021-01-27] MEDS: AMIODARONE 450 MG in DEXTROSE 5% 241 ML IV PRN (06:54)
[2021-01-27] MEDS: FILTER 0.22 MICRON FOR AMIODARONE IV PRN (06:55)
[2021-01-27] MEDS: INSULIN LISPRO 100 UNITS/ML, PEN SQ-INSULIN SCH ×4 (07:53→20:10)
[2021-01-27] MEDS: OMEPRAZOLE 20 MG CAPSULE.DR PO SCH (07:54)
[2021-01-27] MEDS: metFORMIN 500 MG TABLET PO SCH ×2 (07:54→16:47)
[2021-01-27] MEDS: METOLAZONE 2.5 MG TABLET PO SCH (07:54)
[2021-01-27] MEDS: POTASSIUM CHLORIDE 20 MEQ TAB.ER.PRT PO SCH (07:54)
[2021-01-27] MEDS: FUROSEMIDE 40 MG/4 ML IV SCH (07:54)
[2021-01-27] MEDS: APIXABAN 5 MG TABLET PO SCH ×2 (07:55→20:08)
[2021-01-27] MEDS: ENALAPRIL 10 MG TABLET PO SCH (07:55)
[2021-01-27] MEDS: GLIMEPIRIDE 4 MG TABLET PO SCH ×2 (07:55→20:08)
[2021-01-27] MEDS: ASPIRIN 81 MG TABLET CHEW PO SCH (07:55)
[2021-01-27] MEDS: DOCUSATE 100 MG CAPSULE PO SCH ×2 (07:55→20:08)
[2021-01-27] MEDS: SODIUM CHLORIDE FLUSH 10ML SYR IVF SCH ×2 (07:56→20:10)
[2021-01-27] MEDS: AMIODARONE 200 MG TABLET PO SCH (07:56)
[2021-01-27] MEDS ORDERED: INSULIN LISPRO 100 UNITS/ML, PEN SQ-INSULIN SCH (11:00)
[2021-01-27] MEDS ORDERED: METOPROLOL TARTRATE 50 MG TAB PO SCH (16:00)
[2021-01-27] MEDS ORDERED: SODIUM CHLORIDE 0.9%, 250ML IVBOLUS ONE ×2 (19:00→22:00)
[2021-01-27] MEDS ORDERED: METOPROLOL TARTRATE 25 MG TAB PO ONE ×2 (20:00→21:30)
[2021-01-27] MEDS ORDERED: SODIUM CHLORIDE 0.9% 250 ML IV SCH (21:36)
[2021-01-28] VITALS (9 sets, daily range): BP systolic 90–121; BP diastolic 63–85
[2021-01-28 05:16] LABS: ANION GAP 7 mmol/L (5-15); CALCIUM 9.9 mg/dL (8.5-10.1); CHLORIDE 100 mmol/L (98-107); CREATININE 0.86 mg/dL (0.7-1.3)
[2021-01-28] MEDS: POTASSIUM CHLORIDE 20 MEQ TAB.ER.PRT PO SCH (07:41)
[2021-01-28] MEDS: OMEPRAZOLE 20 MG CAPSULE.DR PO SCH (07:41)
[2021-01-28] MEDS: AMIODARONE 200 MG TABLET PO SCH (07:41)
[2021-01-28] MEDS: metFORMIN 500 MG TABLET PO SCH ×2 (07:41→16:43)
[2021-01-28] MEDS: APIXABAN 5 MG TABLET PO SCH ×2 (07:41→21:32)
[2021-01-28] MEDS: ASPIRIN 81 MG TABLET CHEW PO SCH (07:42)
[2021-01-28] MEDS: DOCUSATE 100 MG CAPSULE PO SCH ×2 (07:42→21:32)
[2021-01-28] MEDS: GLIMEPIRIDE 4 MG TABLET PO SCH ×2 (07:42→21:32)
[2021-01-28] MEDS: INSULIN LISPRO 100 UNITS/ML, PEN SQ-INSULIN SCH ×4 (07:42→21:36)
[2021-01-28] MEDS: METOPROLOL TARTRATE 50 MG TAB PO SCH ×3 (07:47→21:33)
[2021-01-28] MEDS: SODIUM CHLORIDE FLUSH 10ML SYR IVF SCH ×2 (09:00→21:00)
[2021-01-28] MEDS ORDERED: FILTER 0.22 MICRON IV PRN (10:00)
[2021-01-28] MEDS ORDERED: AMIODARONE 150 MG in DEXTROSE 5% 100 ML IV ONE (10:00)
[2021-01-28] MEDS: AMIODARONE 450 MG in DEXTROSE 5% 241 ML IV PRN ×2 (10:44→17:45)
[2021-01-28] MEDS ORDERED: INSULIN GLARGINE 100 UNITS/ML, PEN SQ-INSULIN SCH (21:00)
[2021-01-29 00:33] VITALS: BP 114/73
[2021-01-29 05:39] LABS: ANION GAP 5 mmol/L (5-15); CALCIUM 9.9 mg/dL (8.5-10.1); CHLORIDE 101 mmol/L (98-107)
[2021-01-29 05:41] LABS: CREATININE 0.81 mg/dL (0.7-1.3)
[2021-01-29] MEDS: INSULIN LISPRO 100 UNITS/ML, PEN SQ-INSULIN SCH ×4 (07:00→21:03)
[2021-01-29 07:30] VITALS: BP 119/77
[2021-01-29] MEDS: AMIODARONE 200 MG TABLET PO SCH (10:53)
[2021-01-29] MEDS: metFORMIN 500 MG TABLET PO SCH ×2 (10:53→16:11)
[2021-01-29] MEDS: GLIMEPIRIDE 4 MG TABLET PO SCH ×2 (10:53→21:04)
[2021-01-29] MEDS: DOCUSATE 100 MG CAPSULE PO SCH ×2 (10:53→21:05)
[2021-01-29] MEDS: ASPIRIN 81 MG TABLET CHEW PO SCH (10:53)
[2021-01-29] MEDS: APIXABAN 5 MG TABLET PO SCH ×2 (10:53→21:04)
[2021-01-29] MEDS: METOPROLOL TARTRATE 50 MG TAB PO SCH ×3 (10:54→21:05)
[2021-01-29] MEDS: OMEPRAZOLE 20 MG CAPSULE.DR PO SCH (10:54)
[2021-01-29] MEDS: ACETAMINOPHEN 325 MG TABLET PO PRN (10:54)
[2021-01-29] MEDS: INSULIN GLARGINE 100 UNITS/ML, PEN SQ-INSULIN SCH ×2 (10:55→21:04)
[2021-01-29] MEDS: SODIUM CHLORIDE FLUSH 10ML SYR IVF SCH ×2 (10:55→21:00)
[2021-01-29 14:12] VITALS: BP 133/63
[2021-01-29 16:05] VITALS: BP 107/73
[2021-01-29 21:07] VITALS: BP 107/70
[2021-01-30 01:37] VITALS: BP 111/75
[2021-01-30 05:30] LABS: ANION GAP 4 mmol/L (5-15); CALCIUM 9.8 mg/dL (8.5-10.1); CHLORIDE 106 mmol/L (98-107)
[2021-01-30 05:31] LABS: CREATININE 0.82 mg/dL (0.7-1.3)
[2021-01-30] MEDS: INSULIN LISPRO 100 UNITS/ML, PEN SQ-INSULIN SCH ×2 (07:00→11:00)
[2021-01-30 07:19] VITALS: BP 121/86
[2021-01-30 09:12] VITALS: BP 116/68
[2021-01-30] MEDS: OMEPRAZOLE 20 MG CAPSULE.DR PO SCH (09:14)
[2021-01-30] MEDS: ASPIRIN 81 MG TABLET CHEW PO SCH (09:14)
[2021-01-30] MEDS: APIXABAN 5 MG TABLET PO SCH (09:14)
[2021-01-30] MEDS: DOCUSATE 100 MG CAPSULE PO SCH (09:14)
[2021-01-30] MEDS: GLIMEPIRIDE 4 MG TABLET PO SCH (09:14)
[2021-01-30] MEDS: METOPROLOL TARTRATE 50 MG TAB PO SCH (09:15)
[2021-01-30] MEDS: AMIODARONE 200 MG TABLET PO SCH (09:15)
[2021-01-30] MEDS: INSULIN GLARGINE 100 UNITS/ML, PEN SQ-INSULIN SCH (09:16)
[2021-01-30] MEDS: metFORMIN 500 MG TABLET PO SCH (09:18)
[2021-01-30] MEDS: SODIUM CHLORIDE FLUSH 10ML SYR IVF SCH (09:18)
[2021-01-30] MEDS ORDERED: FURO-93 PO (09:20)
[2021-01-30] MEDS ORDERED: AMIO200T42 PO (09:20)
[2021-01-30] MEDS ORDERED: ASPI-963 PO (09:20)
[2021-01-30] MEDS ORDERED: POTA10TA5 PO (09:20)
[2021-01-30] MEDS ORDERED: METO50TA82 PO (09:20)
[2021-01-30 12:58] VITALS: BP 116/71
== END 2021-01-30 14:27 | disposition home or self-care (01) | DRG 229 ==
LOC: 5SO 04:35 → CSU 09:37 → 5SO 01-23 19:30 → DCLOUNGE 01-30 14:25
PROVIDERS: ADMIT Thoracic Surgery (Cardiothoracic Vascular Surgery); ATTEND Thoracic Surgery (Cardiothoracic Vascular Surgery)
PROC: 02B70ZK Excision of Left Atrial Appendage, Open Approach (ICD-10-PCS; 2021-01-21)
PROC: B24BZZ4 Ultrasonography of Heart with Aorta, Transesophageal (ICD-10-PCS; 2021-01-21)
PROC: 5A1221Z Performance of Cardiac Output, Continuous (ICD-10-PCS; 2021-01-21)
PROC: 02580ZZ Destruction of Conduction Mechanism, Open Approach (ICD-10-PCS; principal; 2021-01-21 07:30)
DX: I48.19 Other persistent atrial fibrillation (principal); E87.0 Hyperosmolality and hypernatremia; E87.2 Acidosis; E66.9 Obesity, unspecified; Z68.38 Body mass index [BMI] 38.0-38.9, adult; E11.9 Type 2 diabetes mellitus without complications; I10 Essential (primary) hypertension; R09.02 Hypoxemia; Z87.891 Personal history of nicotine dependence; Z79.82 Long term (current) use of aspirin; Z79.4 Long term (current) use of insulin
CPT/HCPCS: 36415; 36600; J3490; S0017; 71045; 71046; 80048; 80053; 81003; 82040; 82330; 82800; 82803; 82810; 82947; 82962; 83036; 83735; 84132; 84295; 85014; 85018; 85025; 85049; 85347; 85610; 85730; 86850; 86900; 86920; 86923; 87081; 88305; 93005; 93312; 93321; 93325; 94002; 94003; 94150; 94660; G0378; J0171; J0697; J1644; J1815; J1940; J2250; J2405; J2704; J2720; J3010; J3370; J3475; J3480; J7060; P9045; P9047; C1751; C1760; J0282; J0780; J2370; J2930; J7040; J7050; J7120

== ENCOUNTER 2021-03-12 06:11 | Day surgery (SDC) | payer OTHER ==
[~2021-03-12] VITALS: Ht 188 cm; Wt 136.4 kg
[~2021-03-12 06:11] MED LIST changes: +AMIO200T42 PO; +ASPI-963 PO; +CETI10CA PO; +FURO-93 PO; +METO50TA82 PO; +OMEP-110 PO; +POTA10TA5 PO
[2021-03-12] MEDS ORDERED: AMIO200T42 PO (06:45)
[2021-03-12] MEDS ORDERED: METO50TA82 PO (06:45)
[2021-03-12 06:48] VITALS: BP 149/93
[2021-03-12 07:16] LABS: BASOPHILS % (AUTO) 1 % (0-1); EOSINOPHILS % (AUTO) 6 % (1-7); LYMPHOCYTES % (AUTO) 19 % (22-44); MEAN CORPUSCULAR HEMOGLOBIN 30.1 pg (27.5-34.5); MEAN CORPUSCULAR HGB CONC 32.8 g/dL (33.2-36.2); MEAN PLATELET VOLUME 7.9 fL (7.4-10.4); MONOCYTES % (AUTO) 12 % (2-9); NEUTROPHILS % (AUTO) 62 % (42-75); PLATELET COUNT 414 x10^3/uL (130-400); RED BLOOD COUNT 4.62 x10^6/uL (4.38-5.82); RED CELL DISTRIBUTION WIDTH 13.7 % (9.4-14.8)
[2021-03-12 07:25] LABS: MD NO
[2021-03-12 07:28] LABS: ANION GAP 5 mmol/L (5-15); CALCIUM 8.9 mg/dL (8.5-10.1); CHLORIDE 112 mmol/L (98-107); CREATININE 0.82 mg/dL (0.7-1.3)
[2021-03-12 07:34] LABS: INTERNATIONAL NORMALIZED RATIO 1.03 (0.93-1.1)
== END 2021-03-12 09:43 | disposition home or self-care (01) ==
LOC: CACL 06:11
PROVIDERS: ATTEND Internal Medicine Clinical Cardiac Electrophysiology
DX: I48.92 Unspecified atrial flutter (principal); I48.0 Paroxysmal atrial fibrillation; I10 Essential (primary) hypertension; E11.9 Type 2 diabetes mellitus without complications; Z79.01 Long term (current) use of anticoagulants; Z79.4 Long term (current) use of insulin; Z79.899 Other long term (current) drug therapy
CPT/HCPCS: 36415; 80048; 85025; 85610; 92960; 93005